=== PATIENT | male | born 1965 | race Caucasian/White ===

== ENCOUNTER 2018-09-10 18:31 | Emergency (ER) | payer MEDICARE, MEDICAID ==
[~2018-09-10] VITALS: Ht 175.3 cm; Wt 77.1 kg
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
[2018-09-10 19:00] VITALS: BP 138/70
[2018-09-10] MEDS ORDERED: TYLENOL EXTRA500 MG ORAL (19:46)
[2018-09-10] MEDS ORDERED: CEPHALEXIN500 MG ORAL (19:46)
[2018-09-10] MEDS ORDERED: BACITRACIN-P28.35 GM TP (19:46)
[2018-09-10 20:03] VITALS: BP 130/90
[2018-09-10] MEDS ORDERED: Bacitracin Oint 15gm Tube TOPIC ONE (20:15)
== END 2018-09-10 20:15 | disposition home or self-care (01) ==
LOC: EDBD 18:31 → EMR 19:38
DX: S01.81XA Laceration without foreign body of other part of head, initial encounter (principal); S80.212A Abrasion, left knee, initial encounter; S80.211A Abrasion, right knee, initial encounter; Y09 Assault by unspecified means; Y93.9 Activity, unspecified; Y92.9 Unspecified place or not applicable
CPT/HCPCS: 99283